=== PATIENT | female | born 1945 | race Caucasian/White ===

== ENCOUNTER 2022-09-29 10:03 | Outpatient (CLI) | payer MEDICARE, BC, SELFPAY ==
[2022-09-29 15:47] LABS: SARS PCR* Negative SARS-CoV-2 (Negative)
== END 2022-09-29 10:04 | disposition home or self-care (01) ==
PROVIDERS: PCP Internal Medicine; Visit Provider Orthopaedic Surgery
DX: Z01.812 Encounter for preprocedural laboratory examination (principal); Z20.822 Contact with and (suspected) exposure to COVID-19
CPT/HCPCS: 87635

== ENCOUNTER 2022-09-30 06:24 | Day surgery (SDC) | payer MEDICARE, BC, SELFPAY ==
[2022-09-30] VITALS (24 sets, daily range): BP systolic 115–178; BP diastolic 65–133; PULSE 53–88; RESP 12–16; TEMP 35.6–36.9; O2SAT 91–100; BMI 29.2
[2022-09-30] MEDS: ACETAMINOPHEN 500 MG TABLET 1000 MG PO ×3 (06:53→18:40)
[2022-09-30] MEDS: CELECOXIB 200 MG CAPSULE PO (06:53)
[2022-09-30] MEDS: OXYCODONE (CR) 10 MG TAB.ER.12H PO (06:53)
[2022-09-30] MEDS: LACTATED RINGERS 1000 ML 1,000 ML 100 ML IV (07:00)
[2022-09-30] MEDS: SODIUM CHLORIDE 0.9 % (FLUSH) 10 ML SYRINGE IVF (07:00)
[2022-09-30] MEDS: MIDAZOLAM HCL 1 MG/ML inj IVP (07:41)
[2022-09-30] MEDS: fentaNYL 100 MCG/2 ML inj IVP (07:41)
--- NOTE | 2022-09-30 07:48 | W.ANESCHARGE ---
Anesthesia Charges Start Date/Time Anesthesia Start Date: 09/30/22 Anesthesia Start Time: 08:15 Stop Date/Time Anesthesia Stop Date: 09/30/22 Anesthesia Stop Time: 10:27 Summary Extremes of Age - Over 70 or under 1: MDA
--- NOTE | 2022-09-30 07:48 | W.PM.NB ---
Nerve Block Nerve Block Time Seen by Provider: 07:43 Date Seen: 09/30/22 Type of block requested by surgeon for post-operative analgesia: adductor canal Side: right Time out performed: Yes Verification of patient name: Yes Verification of date of : Yes Site marking: site marked Name of person performing procedure: Jasmeet Continuous monitoring Was continuous monitoring of O2 sat, B/P, personal investment adviser, recorded every 15 minutes?: Yes Procedure Checklist: sterile prep, needles and gloves Ultrasound guided. Images saved: Yes Medications given in 5ml increments after negative aspiration: Ropivicaine %: 0.5 mL: 20 Needle gauge: 20 Decadron (mg): 10 Precedex (mcg): 25 Patient tolerated procedure well: Yes Additional comments: Needle noted adjacent to nerve Block Charges Block Charge (with Pro Fee): Femoral Nerve Use of Ultrasound Machine for Block: Yes- US Guidance/pain block
--- NOTE | 2022-09-30 07:48 | W.PM.NB ---
Nerve Block Nerve Block Time Seen by Provider: 07:44 Date Seen: 09/30/22 Type of block requested by surgeon for post-operative analgesia: geniculars Side: right Time out performed: Yes Verification of patient name: Yes Verification of date of : Yes Site marking: site marked Name of person performing procedure: Jasmeet Continuous monitoring Was continuous monitoring of O2 sat, B/P, junior financial analyst, recorded every 15 minutes?: Yes Procedure Checklist: sterile prep, needles and gloves Medications given in 5ml increments after negative aspiration: Ropivicaine %: 0.5 mL: 9 Needle gauge: 25 Patient tolerated procedure well: Yes Block Charges Block Charge (with Pro Fee): Genicular Nerve Block Use of Ultrasound Machine for Block: No
--- NOTE | 2022-09-30 08:08 | SUR.PREOP ---
TIME?OUT:?0751 PT/RN/MDA?VERIFICATION?OF?SURGICAL?SITE,?PROCEDURE,?AND?CONSENT OBTAINED?PRIOR?TO?INVASIVE?PROCEDURE.
[2022-09-30] MEDS: CEFAZOLIN 2 GM INJ IVP (08:25)
[2022-09-30] MEDS: TRANEXAMIC ACID 100 MG/ML INJ 1000 MG IV (08:35)
--- NOTE | 2022-09-30 09:29 | CRLHL7_ITS ---
For Patients: As a result of the Cures Act, medical imaging exams and procedure reports are released immediately into your electronic medical record. You may view this report before your referring provider. If you have questions, please contact your health care provider. Indication: Post Op TKA Technique: Two views right knee Findings/Impression: Hardware from a right total knee arthroplasty is in satisfactory position. Bone alignment is normal. No sign of acute fracture. Postop changes are within normal limits. Dictated by Juno Milligan MD @ 09/30/2022 10:49:19 AM (Electronically Signed)
--- NOTE | 2022-09-30 09:31 | PM.ORPRC ---
Procedure Note Date of procedure: 09/30/22 Procedure: PREOPERATIVE DIAGNOSIS: Right knee osteoarthritis POSTOPERATIVE DIAGNOSIS: Right knee osteoarthritis NAME OF OPERATION: Right total knee arthroplasty SURGEON: Steve Noel MD QUILLER MACHINE FIXER: Kika Vargas PA-C ANESTHESIA: Spinal ESTIMATED BLOOD LOSS: 0 mL COMPLICATIONS: None SPECIMENS: None DRAINS: None PREOPERATIVE ANTIBIOTICS: Ancef 1 g IMPLANTS: 1. J&J Attune # 5 narrow posterior stabilized femur 2. #4 fixed-bearing tibia 3. # 5 posterior stabilized, 5 mm fixed-bearing polyethylene 4. 38 patella INDICATIONS: The patient is a 77-year-old with a longstanding history of severe, unrelenting right knee pain secondary to end-stage (grade IV) right knee osteoarthritis. Despite appropriate nonoperative management, including activity modification, anti-inflammatories, jeyw-blf-ghmorqj pain medication, bracing, physical therapy, and injections they continue to have pain and disability. Operative intervention was offered. The risks, benefits and expected outcomes were discussed in detail. These included but were not limited to: Infection, bleeding, injury to blood vessel or nerve, venous thromboembolism. All questions were answered to their satisfaction. Use of an assistant corporate controller was necessary throughout the case for patient positioning and safety, soft tissue retraction, and closure. PROCEDURE: Spinal anesthesia was administered. The patient was placed supine on the operating table. The assistant corporate controller made sure the patient was positioned appropriately. The lower extremity was prepped and draped in the usual sterile fashion. The limb was exsanguinated with the Richard bandage. The pneumatic tourniquet was inflated to 300 mmHg. A standard anterior incision was made with the knee in flexion. Subcutaneous dissection was sharply taken through fascial layer #1. Full-thickness medial and lateral flaps were elevated. The assistant corporate controller retracted the soft tissues and protected them throughout the case. A standard medial parapatellar approach was made. The patella was everted. The infrapatellar fat pad was preserved. The menisci and cruciate ligaments were sharply d?brided. Marginal osteophytes were d?brided with the rongeur. The drill was used to penetrate the femoral canal. The canal was aspirated and irrigated with pulse lavage. The intramedullary femoral guide was placed for a 5-degree valgus cut, removing 10 mm off the distal femur. The saw was used to make the cut. Whitesides line and the trans epicondylar axis were marked. The femoral sizing guide was pinned onto the distal femur. Three degrees of external rotation nicely parallels the transepicondylar axis. Pins were placed for posterior referencing. The four-in-one cutting guide was pinned onto the distal femur. The anterior, posterior, and chamfer cuts were made. The assistant corporate controller protected the collateral ligaments. The box cutting guide was pinned. The box cuts were made. The boxed trial was placed and was an excellent fit. Drill holes for the lugs were made. Attention was then turned to the proximal tibia. The extramedullary tibial guide was placed for a neutral varus/valgus cut with 5 degrees of posterior slope, removing 2 mm based off the medial tibial surface. The assistant corporate controller protected the collateral ligaments and the neurovascular bundle. The saw was used to make the cut. Trial components were placed. The knee was nicely balanced in both flexion and extension. The trial components were removed. The tray was placed in appropriate rotation, parallel to our tibial cutting pins. It was pinned by the assistant corporate controller and the drill and the punch were used. The tray was removed. The punch was used again. We placed a bone plug in the femoral canal. Attention was then turned to the patella. [place] patellar thickness was 21 mm. The lobster claw resection guide was used with the 7.5 mm tavo. The saw was used to make the cut. Drill holes were made by the assistant corporate controller. The trial was placed and was an excellent fit. Cancellous surfaces were irrigated with pulse lavage and thoroughly dried by the assistant corporate controller. We cemented the tibial component, then the femoral component. We impacted the 5 mm polyethylene onto the tibial tray. The knee was brought into full extension. We then cemented the patellar component. Excessive cement was removed. The cement was allowed to harden. The knee was taken through a range of motion and was found to be nicely balanced in both flexion and extension. The patella tracks centrally. The assistant corporate controller did a three minute dilute Betadine solution soak. The assistant corporate controller irrigated the wound with 3 liters of normal saline via pulse lavage. The assistant corporate controller reapproximated the extensor mechanism with #1 Vicryl in an interrupted tripah-ws-pyrdn fashion. The assistant corporate controller then ran the extensor mechanism with a #1 PDO Stratafix. The assistant corporate controller closed the subcutaneous tissues with a 3-0 Stratafix and the skin with a running 3-0 Stratafix in a subcuticular fashion. Glue was used to seal the skin. The assistant corporate controller placed a dry dressing, HIEU stocking, and Polar Care. Sponge and needle counts were correct x2. The patient tolerated the procedure well. There were no apparent complications. They were carefully transferred to the hospital bed and taken to the postanesthesia care unit in satisfactory condition. PLAN: The patient will be mobilized with physical therapy. Aspirin will be used for DVT prophylaxis. They will be discharged to home once medically appropriate.
--- NOTE | 2022-09-30 10:28 | P.ANES_ITS ---
Anesthesia Charges Start Date/Time Anesthesia Start Date: 09/30/22 Anesthesia Start Time: 08:15 Stop Date/Time Anesthesia Stop Date: 09/30/22 Anesthesia Stop Time: 10:27 Summary Extremes of Age - Over 70 or under 1: CLINICAL CASE MANAGER
[2022-09-30] MEDS: ONDANSETRON 2 MG/ML inj 4 MG IVP ×3 (12:42→20:43)
[2022-09-30] MEDS: HYDROmorphone 0.5 mg/0.5 ml inj IVP (14:02)
[2022-09-30] MEDS: OXYCODONE 5 MG TABLET PO ×4 (14:03→22:18)
[2022-09-30] MEDS: CEFAZOLIN 1 GM in 0.9 % SODIUM CHLORIDE Mini-bag 100 ML IVPB ×2 (15:50→22:19)
[2022-09-30] MEDS: PROCHLORPERAZINE 5 MG/ML VIAL IV (16:45)
--- NOTE | 2022-09-30 19:09 | PC.NURSE ---
End of Shift: Patient pleasant and cooperative. Patient vitally stable, lungs clear, BS WNL, IV running LR at 75. Patient 1 assist, walker, gb. Patient was struggling with pain and now pain is 4/10, scheduled tylenol given and 10 mg of oxy x3 given. Patient was also struggling with nausea, emesis, and dry heaving. Zophran given x2 and compasine given x1. Patient had an emesis of a total about 100 but was often dry heaving. After compasine patient denied nausea. Patient has only had bites of food. Patient has ambulated to chair and toilet, patient has urinated. Patient right dressing C/D/I.
[2022-09-30] MEDS: LACTATED RINGERS 1000 ML 1,000 ML 75 ML IV (20:44)
--- NOTE | 2022-09-30 21:14 | PM.IMPN1 ---
Progress Note: A&P Assessment and plan (1) Status post total right knee replacement: Problem details: 09/30/2022, Dr. Noel Status: Acute Assessment and Plan: pain control; diet; dvt ppx per surgery (2) GERD (gastroesophageal reflux disease): Problem details: continue ppi Status: Acute (3) Hypertension: Problem details: continue maxzide in am Status: Acute Subjective Date Seen: 09/30/22 Interval history: POSTOPERATIVE DIAGNOSIS:? Right knee osteoarthritis NAME OF OPERATION:? Right total knee arthroplasty SURGEON:? Steve Noel MD ANESTHESIA:? Spinal ESTIMATED BLOOD LOSS:? 0 mL The patient endorses nausea and vomiting after surgery denies chest pain and sob knee pain controlled denies abdominal pain Exam Narrative: Exam Narrative: Gen: no acute distress HEENT: NCAT EOMI mmm Neck: Supple CV: RRR normal s1 s2 Lungs: CTAB Abd: Soft,nt, nd Neuro: Alert, oriented, CN grossly intact; nonfocal screening exam Psych: appropriate affect MSK: age appropriate muscle mass Skin; Warm, dry no rash on face Const: Vital Signs, click to edit/add: Vital Signs - 24 hr 09/30/22 07:11 09/30/22 07:41 09/30/22 07:45 Temperature 97.9 F Pulse Rate 72 63 62 Pulse Rate [Left P ulse Oximeter] Respiratory Rate 16 16 16 Blood Pressure 137/75 150/78 H 135/71 Blood Pressure [Ri ght Arm] Pulse Oximetry 97 99 98 Oxygen Delivery Me thod Room Air Nasal Cannula Nasal Cannula Oxygen Flow Rate 2 2 09/30/22 08:00 09/30/22 10:23 09/30/22 10:30 Temperature 97.8 F Pulse Rate 61 76 71 Pulse Rate [Left P ulse Oximeter] Respiratory Rate 16 16 16 Blood Pressure 118/72 115/69 116/71 Blood Pressure [Ri ght Arm] Pulse Oximetry 97 94 94 Oxygen Delivery Me thod Nasal Cannula Room Air Room Air Oxygen Flow Rate 2 09/30/22 10:35 09/30/22 10:40 09/30/22 10:45 Temperature 97.4 F L Pulse Rate 72 69 70 Pulse Rate [Left P ulse Oximeter] Respiratory Rate 16 16 16 Blood Pressure 115/78 131/76 129/73 Blood Pressure [Ri ght Arm] Pulse Oximetry 95 96 95 Oxygen Delivery Me thod Room Air Room Air Room Air Oxygen Flow Rate 2 09/30/22 10:52 09/30/22 11:06 09/30/22 11:00 Temperature 96.1 F L 96.1 F L 96.1 F L Pulse Rate 67 67 Pulse Rate [Left P ulse Oximeter] 67 Respiratory Rate 12 12 12 Blood Pressure Blood Pressure [Ri ght Arm] 121/71 121/71 118/65 Pulse Oximetry 97 Oxygen Delivery Me thod Room Air Room Air Room Air Oxygen Flow Rate 2 09/30/22 11:15 09/30/22 11:30 09/30/22 11:45 Temperature 96.2 F L 96.4 F L 96.4 F L Pulse Rate Pulse Rate [Left P ulse Oximeter] 55 L 53 L 62 Respiratory Rate 12 12 12 Blood Pressure Blood Pressure [Ri ght Arm] 126/70 132/75 137/78 Pulse Oximetry 93 96 96 Oxygen Delivery Me thod Room Air Room Air Room Air Oxygen Flow Rate 09/30/22 12:15 09/30/22 14:00 09/30/22 14:45 Temperature 96.5 F L 96.9 F L 97.1 F L Pulse Rate Pulse Rate [Left P ulse Oximeter] 66 70 80 Respiratory Rate 14 14 16 Blood Pressure Blood Pressure [Ri ght Arm] 134/84 157/93 H 174/133 H Pulse Oximetry 100 100 99 Oxygen Delivery Me thod Room Air Room Air Room Air Oxygen Flow Rate 09/30/22 15:45 09/30/22 12:45 09/30/22 15:00 Temperature 96.5 F L 96.5 F L Pulse Rate Pulse Rate [Left P ulse Oximeter] 73 66 Respiratory Rate 16 14 Blood Pressure Blood Pressure [Ri ght Arm] 178/92 H 141/83 H Pulse Oximetry 95 98 91 Oxygen Delivery Me thod Room Air Room Air Oxygen Flow Rate 09/30/22 15:00 09/30/22 16:45 Temperature 96.5 F L Pulse Rate Pulse Rate [Left P ulse Oximeter] 84 84 Respiratory Rate 14 14 Blood Pressure Blood Pressure [Ri ght Arm] 147/81 H Pulse Oximetry 91 Oxygen Delivery Me thod Nasal Cannula Oxygen Flow Rate 2
[2022-09-30] MEDS: SENNOSIDES 1 TAB TABLET 2 TAB PO (22:18)
[2022-09-30] MEDS: ASPIRIN 81 MG TABLET EC PO (22:18)
--- NOTE | 2022-09-30 23:27 | PC.NURSE ---
SHIFT NOTE 19-23: Pt nauseated with movement, none at rest, emesis x1 after transfer from chair to bed, PRN Zofran given with relief. Pt does feel as though her nausea is improving since getting back from PACU. Pt moving well, up 1 assist with walker. Denies SOB and CP. VSS on RA initially, when pt fell asleep O2 sats dipped to high 80's, 2L O2 PNC applied with O2 sats improving to mid 90's. IS and C&DB encouraged. PRN Oxycodone given for pain with pt reporting relief. Dressing CDI, cryocuff on continuously.
[2022-10-01] MEDS: PROCHLORPERAZINE 5 MG/ML VIAL IV (00:06)
[2022-10-01] MEDS: ACETAMINOPHEN 500 MG TABLET 1000 MG PO ×2 (00:43→06:55)
[2022-10-01 00:56] VITALS: PULSE 88; RESP 16
[2022-10-01 00:57] VITALS: BP 141/91; PULSE 87; RESP 16; TEMP 36.7; O2SAT 93
[2022-10-01] MEDS: OXYCODONE 5 MG TABLET PO ×5 (02:46→10:30)
[2022-10-01 02:58] VITALS: BP 154/80; PULSE 89; RESP 16; TEMP 36.6; O2SAT 95
--- NOTE | 2022-10-01 04:13 | PC.NURSE ---
: Pt c/o nausea beginning of shift, compazine given 10mg with relief, has been to br and was up in chair, now back in bed, pain noted after oxycodone 5mg thus another 5mg just given, vss on ra, ivf still infusing until appetitie improves without nausea.
[2022-10-01] MEDS: CEFAZOLIN 1 GM in 0.9 % SODIUM CHLORIDE Mini-bag 100 ML IVPB (06:34)
[2022-10-01 06:52] LABS: Hematocrit 39.6 % (33.0-51.0); Hemoglobin* 12.9 gm/dL (12.0-16.0); Immature Granulocytes Pct Auto 0.3 %; Mean Corpuscular HGB Conc 33 gm/dL (32-36); Mean Corpuscular Hemoglobin 31 pg (26-34); Mean Corpuscular Volume 95 fL (80-100); Monocytes Percent Auto 6.4 % (0.0-11.0); Neutrophils Percent Auto 88.3 % (42.0-72.0); Platelet Count* 242 K/uL (140-440); RDW Coefficient of Variation % 13.5 % (11.5-15.5); Red Blood Count 4.19 m/uL (4.00-5.20); White Blood Count* 11.33 K/uL (4.50-11.00)
[2022-10-01 06:56] LABS: Slide Review Reflex No
[2022-10-01 07:00] VITALS: BP 121/72; PULSE 93; RESP 16; TEMP 35.8; O2SAT 95
[2022-10-01 07:28] LABS: INR 0.98 (0.91-1.10); Prothrombin Time 13.6 Seconds
[2022-10-01 07:36] LABS: Potassium* 3.7 mmol/L (3.6-5.1); Sodium* 134 mmol/L (135-149)
[2022-10-01 07:39] LABS: Blood Urea Nitrogen* 16 mg/dL (7-30); Creatinine* 0.7 mg/dL (0.5-1.5); Est. Creatinine Clearance* 38.97; Estimated Glomerular Filt Rate 89 ml/min
[2022-10-01] MEDS: TRIAMTERENE-HCTZ 37.5-25 MG TB 1 TAB PO (08:19)
[2022-10-01] MEDS: SENNOSIDES 1 TAB TABLET 2 TAB PO (08:20)
[2022-10-01] MEDS: ASPIRIN 81 MG TABLET EC PO (08:20)
[2022-10-01] MEDS: OMEPRAZOLE 20 MG CAPSULE DR PO (08:20)
--- NOTE | 2022-10-01 08:34 | PM.ORPN ---
Subjective Subjective Time Seen by Provider: 07:30 Date Seen: 10/01/22 Principal diagnosis: Status post right total knee arthroplasty. 09/30/2022 Interval history: Janessa is comfortable this morning. Her nausea and vomiting has ceased. She will discharge to home today. Ortho Exam Narrative Exam Narrative: Alert and oriented x3. Patient is in no acute distress. Converses without labored breathing. Hearing is grossly intact. Ambulates with a walker. Examination of the right knee shows no erythema or warmth or sign of infection. The dressing is intact. Bilateral calves are soft and nontender. CMS intact right lower extremity. Quad strength 4/5. Const Vital Signs, click to edit/add: Vital Signs - 24 hr 09/30/22 10:23 09/30/22 10:30 09/30/22 10:35 Temperature 97.8 F Pulse Rate 76 71 72 Pulse Rate [Left Pulse Oximeter] Respiratory Rate 16 16 16 Blood Pressure 115/69 116/71 115/78 Blood Pressure [Right Arm] Pulse Oximetry 94 94 95 Oxygen Delivery Method Room Air Room Air Room Air Oxygen Flow Rate 09/30/22 10:40 09/30/22 10:45 09/30/22 10:52 Temperature 97.4 F L 96.1 F L Pulse Rate 69 70 67 Pulse Rate [Left Pulse Oximeter] Respiratory Rate 16 16 12 Blood Pressure 131/76 129/73 Blood Pressure [Right Arm] 121/71 Pulse Oximetry 96 95 Oxygen Delivery Method Room Air Room Air Room Air Oxygen Flow Rate 2 09/30/22 11:06 09/30/22 11:00 09/30/22 11:15 Temperature 96.1 F L 96.1 F L 96.2 F L Pulse Rate 67 Pulse Rate [Left Pulse Oximeter] 67 55 L Respiratory Rate 12 12 12 Blood Pressure Blood Pressure [Right Arm] 121/71 118/65 126/70 Pulse Oximetry 97 93 Oxygen Delivery Method Room Air Room Air Room Air Oxygen Flow Rate 2 09/30/22 11:30 09/30/22 11:45 09/30/22 12:15 Temperature 96.4 F L 96.4 F L 96.5 F L Pulse Rate Pulse Rate [Left Pulse Oximeter] 53 L 62 66 Respiratory Rate 12 12 14 Blood Pressure Blood Pressure [Right Arm] 132/75 137/78 134/84 Pulse Oximetry 96 96 100 Oxygen Delivery Method Room Air Room Air Room Air Oxygen Flow Rate 09/30/22 14:00 09/30/22 14:45 09/30/22 15:45 Temperature 96.9 F L 97.1 F L 96.5 F L Pulse Rate Pulse Rate [Left Pulse Oximeter] 70 80 73 Respiratory Rate 14 16 16 Blood Pressure Blood Pressure [Right Arm] 157/93 H 174/133 H 178/92 H Pulse Oximetry 100 99 95 Oxygen Delivery Method Room Air Room Air Room Air Oxygen Flow Rate 09/30/22 12:45 09/30/22 15:00 09/30/22 15:00 Temperature 96.5 F L Pulse Rate Pulse Rate [Left Pulse Oximeter] 66 84 Respiratory Rate 14 14 Blood Pressure Blood Pressure [Right Arm] 141/83 H Pulse Oximetry 98 91 Oxygen Delivery Method Room Air Oxygen Flow Rate 09/30/22 16:45 09/30/22 19:00 09/30/22 23:00 Temperature 96.5 F L 98.4 F Pulse Rate Pulse Rate [Left Pulse Oximeter] 84 88 Respiratory Rate 14 16 Blood Pressure Blood Pressure [Right Arm] 147/81 H 151/88 H Pulse Oximetry 91 93 93 Oxygen Delivery Method Nasal Cannula Room Air Oxygen Flow Rate 2 10/01/22 00:56 10/01/22 00:57 10/01/22 02:58 Temperature 98.1 F 98 F Pulse Rate Pulse Rate [Left Pulse Oximeter] 88 87 89 Respiratory Rate 16 16 16 Blood Pressure Blood Pressure [Right Arm] 141/91 H 154/80 H Pulse Oximetry 93 95 Oxygen Delivery Method Nasal Cannula Room Air Oxygen Flow Rate 1 10/01/22 07:00 Temperature 96.5 F L Pulse Rate Pulse Rate [Left Pulse Oximeter] 93 Respiratory Rate 16 Blood Pressure Blood Pressure [Right Arm] 121/72 Pulse Oximetry 95 Oxygen Delivery Method Room Air Oxygen Flow Rate Assessment and Plan Assessment and plan (1) Status post total right knee replacement: Problem details: 09/30/2022, Dr. Noel Status: Acute Assessment and Plan: Plan for discharge is today to home if they meet discharge criteria. DVT prophylaxis includes aspirin 81 mg twice daily x1 month, Shimon stockings x1 month may remove for 1 hr per day, frequent ambulation Remove dressing in 1 week. Observe wound and phone Orthopedics with any questions or concerns Return to clinic in 1 week for a wound check Return to clinic in [address] Noel Minimize narcotic use. Wean off and discontinue soon as possible. Activities as tolerated. No strenuous activity. Outpatient physical therapy as scheduled. Ice and elevate the operative extremity. No restriction on ice. (2) GERD (gastroesophageal reflux disease): Problem details: continue ppi Status: Acute (3) Hypertension: Problem details: continue maxzide in am Status: Acute
[2022-10-01 09:04] VITALS: BP 129/73; PULSE 67; RESP 16; TEMP 35.8
--- NOTE | 2022-10-01 09:12 | PC.SOCIAL ---
Met with pt and pt's in pt's room to discuss discharge plans. Pt is prepared at home for recovery. Pt's will assist pt during the recovery time. There are no identified social work needs. Informed pt that she may reach out to social work with any questions.
--- NOTE | 2022-10-01 11:11 | PC.NURSE ---
Alert and oriented x 3, breathing even and unlabored, lung sounds clear bilaterally throughout lung grullon. Appetite fair, patient has had nausea/vomitting on previous shift but denies any N/V at this time. Ambulates with stand by assist with walker. Patient reporting pain to right knee at 4/10 at 0810, administered 5mg oxycodone for pain. Patient participated in therapy with report of mild to moderate pain. CMS to right lower extremity intact, capillary refill <3 seconds. Cryocuff to right knee and legs elevated when resting. Patient reported pain 4/10 at 102, discussed prn pain medication options and patient would like 10 mg in anticipation of transfer home. Discharge paperwork reviewed and signed. No questions at this time. Patient assisted off unit via wheelchair with assist of RIGOBERTO.
== END 2022-10-01 10:45 | disposition home or self-care (01) ==
LOC: OR 06:26 → MEDSURG 06:31
PROVIDERS: PCP Internal Medicine; Visit Provider Orthopaedic Surgery
PROC: (CPT 27447; principal; 2022-09-30 08:00)
DX: M17.11 Unilateral primary osteoarthritis, right knee (principal); K21.9 Gastro-esophageal reflux disease without esophagitis; I10 Essential (primary) hypertension
CPT/HCPCS: 27447; 01402; 36415; 64447; 64454; 73560; 76942; 82565; 84132; 84295; 84520; 85025; 85610; 94761; 97110; 97116; 97162; 97165; 97535; 99100; A9270; C1776; J0690; J0780; J1170; J2250; J2405; J2704; J3010; J7120